=== PATIENT | female | born 1970 | race Caucasian/White ===

== ENCOUNTER 2018-11-25 06:09 | Inpatient (IN) | payer MEDICARE, OTHER ==
--- NOTE | 2018-11-25 07:37 | ER Document Report ---
ED Medical Screen (RME) - General Chief Complaint: Ear Pain Stated Complaint: RIGHT EAR EARACHE Time Seen by Provider: 11/25/18 06:48 Primary Care Provider: SNEHA RONQUILLO MD [Primary Care Provider] - Follow up as needed Notes: Patient is a 48-year-old female who presents emergency department with right ear pain. She states that she has had her ear pain for over a week. She was diagnosed with otitis externa by her primary care provider and was given Bactrim. She finished her Bactrim, but she states that she still continues to have a dull ache in her ear. She has pain behind her ear. She also states that she has redness to the right side of her face. Patient has a history of myasthenia gravis and lupus. She is currently on CellCept, prednisone, and Benlysta. Exam: Tenderness to right mastoid process. I have greeted and performed a rapid initial assessment of this patient. A comprehensive ED assessment and evaluation of the patient, analysis of test results and completion of medical decision making process will be conducted by an additional ED providers. TRAVEL OUTSIDE OF THE [place] IN LAST 30 DAYS: No - Related Data Allergies/Adverse Reactions: erythromycin base [Erythromycin Base] Allergy (Verified 09/12/14 16:31) Penicillins Allergy (Verified 09/12/14 16:31) Past Medical History - Social History Chew tobacco use (# tins/day): No Frequency of alcohol use: None Drug Abuse: None Renal/ Medical History: Denies: Hx Peritoneal Dialysis Musculoskeltal Medical History: Reports Hx Fibromyalgia Psychiatric Medical History: Reports: Hx Attention Deficit Hyperactivity Disorder, Hx Depression Past Surgical History: Reports: Hx Hysterectomy - Immunizations Immunizations up to date: Yes Hx Diphtheria, Pertussis, Tetanus Vaccination: Yes Physical Exam - Vital signs Vitals: Temp Pulse Resp BP Pulse Ox 99.0 F 116 H 20 157/106 H 98 11/25/18 06:24 11/25/18 06:24 11/25/18 06:24 11/25/18 06:24 11/25/18 06:24 Course - Vital Signs Vital signs: Temp Pulse Resp BP Pulse Ox 99.1 F 116 H 18 152/94 H 97 11/25/18 08:58 11/25/18 06:24 11/25/18 08:58 11/25/18 08:58 11/25/18 08:58 - Laboratory Result Diagrams: 11/25/18 08:52 11/25/18 08:52 Laboratory results interpreted by me: 11/25/18 08:52 WBC 15.4 H Hgb 11.8 L RDW 15.4 H Absolute Neutrophils 11.2 H Doctor's Discharge - Discharge Referrals: SNEHA RONQUILLO MD [Primary Care Provider] - Follow up as needed
[2018-11-25 09:10] LABS: ABSOLUTE BASOPHILS # (AUTO) 0.1 10^3/uL (0.0-0.2); ABSOLUTE EOSINOPHILS # (AUTO) 0.1 10^3/uL (0.0-0.6); ABSOLUTE MONOCYTES (AUTO) 1.1 10^3/uL (0.1-1.4); ABSOLUTE NEUT (AUTO) 11.2 10^3/uL (1.7-8.2); BASOPHILS % (AUTO) 0.3 % (0-2); EOSINOPHILS % (AUTO) 0.4 % (0-6); HEMATOCRIT 36.4 % (36.0-47.0); HEMOGLOBIN 11.8 g/dL (12.0-15.5); LYMPHOCYTES % (AUTO) 19.5 % (13-45); MEAN CORPUSCULAR HEMOGLOBIN 27.8 pg (27.0-33.4); MEAN CORPUSCULAR HGB CONC 32.3 g/dL (32.0-36.0); MEAN CORPUSCULAR VOLUME 86 fl (80-97); PLATELET COUNT 433 10^3/uL (150-450); RED BLOOD COUNT 4.23 10^6/uL (3.72-5.28); RED CELL DISTRIBUTION WIDTH 15.4 % (11.5-14.0); SEGMENTED NEUTROPHILS % (AUTO) 72.8 % (42-78); TOTAL CELLS COUNTED % (AUTO) 100 %; WHITE BLOOD COUNT 15.4 10^3/uL (4.0-10.5)
[2018-11-25 09:33] LABS: ALANINE AMINOTRANSFERASE 24 U/L (9-52); ALBUMIN 4.1 g/dL (3.5-5.0); ALKALINE PHOSPHATASE 87 U/L (38-126); ANION GAP 8 (5-19); ASPARTATE AMINO TRANSFERASE 16 U/L (14-36); BILIRUBIN,DIRECT 0.2 mg/dL (0.0-0.4); BILIRUBIN,TOTAL 0.3 mg/dL (0.2-1.3); BLOOD UREA NITROGEN 14 mg/dL (7-20); C-REACTIVE PROTEIN 33.4 mg/L (<10.0); CALCIUM 9.4 mg/dL (8.4-10.2); CARBON DIOXIDE 23 mmol/L (22-30); CHLORIDE 103 mmol/L (98-107); GLUCOSE 106 mg/dL (75-110); POTASSIUM 3.7 mmol/L (3.6-5.0); TOTAL PROTEIN 6.7 g/dL (6.3-8.2)
[2018-11-25 09:46] LABS: ERYTHROCYTE SEDIMENTATION RATE 49 mm/hr (0-20)
[2018-11-25] MEDS ORDERED: MORPHINE SULFATE 10 MG/ML INJ IV ONE (09:50)
--- NOTE | 2018-11-25 09:53 | ER Document Report ---
ED General - General Chief Complaint: Ear Pain Stated Complaint: RIGHT EAR EARACHE Time Seen by Provider: 11/25/18 06:48 Primary Care Provider: SNEHA RONQUILLO MD [Primary Care Provider] - Follow up as needed TRAVEL OUTSIDE OF THE [place] IN LAST 30 DAYS: No - HPI Notes: 48-year-old female with a history of myasthenia gravis gravis and lupus presents to the ED for complaints of right ear pain, right neck pain that has become progressively worse. Patient was placed on Bactrim by her primary care provider for treating right otitis externa. Patient states her symptoms include sharp pain, throbbing. Symptoms have become progressively worse. Pain is 9 out of 10, sharp and constant, has not tried any [id number] medications for pain. denies fevers, chills, chest pain,palpitations, shortness of breath, dyspnea, nausea, vomiting, diarrhea, abdominal pain, hematuria,blurred vision, double vision, loss of vision, speech changes, headaches, wheezing, ST, URI, neck pain, weakness, bowel or bladder dysfunction, saddle anesthesia, numbness or tingling in bilateral upper or lower extremities equally, muscle paralysis, weakness in bilateral upper or lower extremities equally or rash. - Related Data Allergies/Adverse Reactions: erythromycin base [Erythromycin Base] Allergy (Verified 09/12/14 16:31) Penicillins Allergy (Verified 09/12/14 16:31) Past Medical History - General Information source: Patient, Relative - Social History Smoking Status: Never Smoker Chew tobacco use (# tins/day): No Frequency of alcohol use: None Drug Abuse: None Family History: Reviewed & Not Pertinent Patient has suicidal ideation: No Patient has homicidal ideation: No Renal/ Medical History: Denies: Hx Peritoneal Dialysis Musculoskeletal Medical History: Reports Hx Fibromyalgia Psychiatric Medical History: Reports: Hx Attention Deficit Hyperactivity Disorder, Hx Depression Past Surgical History: Reports: Hx Hysterectomy - Immunizations Immunizations up to date: Yes Hx Diphtheria, Pertussis, Tetanus Vaccination: Yes Review of Systems - Review of Systems Constitutional: No symptoms reported EENT: See HPI Cardiovascular: No symptoms reported Respiratory: No symptoms reported Gastrointestinal: No symptoms reported Genitourinary: No symptoms reported Female Genitourinary: No symptoms reported Musculoskeletal: No symptoms reported Skin: No symptoms reported Hematologic/Lymphatic: No symptoms reported Neurological/Psychological: No symptoms reported Physical Exam - Vital signs Vitals: Temp Pulse Resp BP Pulse Ox 99.0 F 116 H 20 157/106 H 98 11/25/18 06:24 11/25/18 06:24 11/25/18 06:24 11/25/18 06:24 11/25/18 06:24 - Notes Notes: PHYSICAL EXAMINATION: GENERAL: Well-appearing, well-nourished and in no mild distress HEAD: Atraumatic, normocephalic. EYES: Pupils equal round and reactive to light, extraocular movements intact, conjunctiva are normal. ENT: Right mastoid tenderness on palpation, noted. Noted right preauricular tenderness on palpation. right cervical lymphadenopathy, right external canal with inflammation, TM intact, no erythema, bulging. Nares patent, oropharynx clear without exudates. Moist mucous membranes. No trismus. NECK: Normal range of motion, supple without lymphadenopathy LUNGS: Breath sounds clear to auscultation bilaterally and equal. No wheezes rales or rhonchi. HEART: Regular rate and rhythm without murmurs ABDOMEN: Soft, nontender, nondistended abdomen. No guarding, no rebound. No masses appreciated. Female : deferred Musculoskeletal: Normal range of motion, no pitting or edema. No cyanosis. NEUROLOGICAL: Cranial nerves grossly intact. Normal speech, normal gait. Normal sensory, motor exams PSYCH: Normal mood, normal affect. SKIN: Warm, Dry, normal turgor, no rashes or lesions noted. Course - Re-evaluation Re-evalutation: 11/25/18 11:04 48-year-old female, afebrile vitals stable in mild distress due to pain. Nurse's notes reviewed. Patient does have a leukocytosis of 15.4, CT soft tissue neck with contrast shows limited mastoid effusion on the right and cannot exclude mastoiditis. Patient's pain is been managed through morphine however this is not lessening her pain which is 9 out of 10, 50 mcg of fentanyl given along with Zofran for nausea. Considering patient's clinical examination along with diagnostic imaging and laboratory findings, patient should be considered for admission for management of mastoiditis. Blood cultures have been drawn, will start patient on 1 g Rocephin IV. Consulted with at least a hotel and, hospitalist who will admit patient to medical service for management of mastoiditis. Patient was agreeable with this plan of care and verbalized understanding of this plan of care. - Vital Signs Vital signs: Temp Pulse Resp BP Pulse Ox 99.1 F 116 H 18 152/94 H 97 11/25/18 08:58 11/25/18 06:24 11/25/18 08:58 11/25/18 08:58 11/25/18 08:58 - Laboratory Result Diagrams: 11/25/18 08:52 11/25/18 08:52 Laboratory results interpreted by me: 11/25/18 11/25/18 08:52 08:52 WBC 15.4 H Hgb 11.8 L RDW 15.4 H Absolute Neutrophils 11.2 H ESR 49 H Sodium 134.4 L C-Reactive Protein 33.4 H Discharge - Discharge Clinical Impression: Mastoiditis Condition: Stable Disposition: ADMITTED INPATIENT Admitting Provider: Noelle Wiseman NP Unit Admitted: Medical Floor Referrals: SNEHA RONQUILLO MD [Primary Care Provider] - Follow up as needed
--- NOTE | 2018-11-25 10:32 | RADIOLOGY REPORT (SQ) ---
EXAM DESCRIPTION: CT SOFT TISSUE NECK WITH COMPLETED DATE/TIME: 11/25/2018 10:12 am REASON FOR STUDY: right neck pain, R mastoid pain COMPARISON: None. TECHNIQUE: Post IV contrasted scanning from skull base through lung apices with review of bone, soft tissue and lung windows. Reconstructed coronal and sagittal MPR images reviewed. All images stored on PACS. All CT scanners at this facility use dose modulation, iterative reconstruction, and/or weight based d osing when appropriate to reduce radiation dose to as low as reasonably achievable (ALARA). [facility]: Dose Right [facility]: CareDose [facility]: Dose Right [facility]: Teradose 4D [facility]: VSE EVAKUATORY ROSSII CONTRAST TYPE AND DOSE: contrast/concentration: Isovue 350.00 mg/ml; Total Contrast Delivered: 75.0 ml; Total Saline Delivered: 55.0 ml RENAL FUNCTION: BUN 14 creatinine 0.73 RADIATION DOSE: CT Rad equipment meets quality standard of care and radiation dose reduction techniq ues were employed. CTDIvol: 16.8 mGy. DLP: 550 mGy-cm. . LIMITATIONS: None. FINDINGS: SKULL BASE: There is an air-fluid level in the mastoid air cells on the right on image 31 series 3. MAJOR SALIVARY GLANDS: No solid or cystic masses. No inflammatory changes. LYMPHADENOPATHY: No adenopathy. MUCOSAL MASSES OR ASYMMETRY: No mucosal masses or asymmetry. LARYNX/CORDS: No abnormal findings. VASCULAR STRUCTURES: The major vessels are patent. LUNG APICES: Clear. BONES: Intact. THYROID: Normal size. No masses. PARANASAL SINUSES: Clear. OTHER: No other significant finding. IMPRESSION: There is a limited mastoid effusion on the right, cannot exclude mastoiditis. TECHNICAL DOCUMENTATION: JOB ID: [id number] Quality ID # [id number]: Final reports with documentation of one or more dose reduction techniques (e.g., Au tomated exposure control, adjustment of the mA and/or kV according to patient size, use of iterative reconstruction technique) 2010 [employer]- All Rights Reserved Reading location - IP/workstation name: [email or web address]
[2018-11-25] MEDS ORDERED: CEFTRIAXONE INJ 1000 MG VIAL IM ONE (10:54)
[2018-11-25] MEDS ORDERED: FENTANYL CITRATE INJ/PF 100 MCG/2 ML AMPUL IV ONE (11:02)
[2018-11-25] MEDS ORDERED: ONDANSETRON HCL INJ/PF 4 MG/2 ML SDV IV ONE (11:02)
[2018-11-25] MEDS ORDERED: NORMAL SALINE 1000 ML 1,000 ML IV PRN (11:05)
[2018-11-25] MEDS ORDERED: CEFTRIAXONE INJ 1000 MG VIAL IV ONE (11:26)
[2018-11-25] MEDS ORDERED: ONDANSETRON HCL INJ/PF 4 MG/2 ML SDV IV PRN ×2 (11:42→13:00)
[2018-11-25] MEDS ORDERED: ACETAMINOPHEN 325 MG TABLET PO PRN (11:42)
[2018-11-25] MEDS ORDERED: TRAMADOL HCL 50 MG TABLET PO PRN (11:48)
[2018-11-25] MEDS ORDERED: IBUPROFEN 800 MG TABLET PO PRN (11:48)
[2018-11-25] MEDS ORDERED: MORPHINE SULFATE 10 MG/ML INJ IV PRN (12:27)
[2018-11-25] MEDS: CIPROFLOXACIN HCL/DEXAMETH OTIC DROP 7.5 ML AD SCH ×2 (15:46→21:20)
[2018-11-25] MEDS ORDERED: (PENDING PHARMACY ID) (Butalb/Acetaminophen/Caffeine [Fioricet 50-300-40 Mg Capsule] 1 CAP PO PRN (16:00)
[2018-11-25] MEDS ORDERED: LORAZEPAM 1 MG TABLET PO PRN (16:00)
[2018-11-25] MEDS ORDERED: MYCOPHENOLATE MOFETIL 1500 MG PO SCH (17:00)
[2018-11-25] MEDS: BUPROPION HCL 75 MG TABLET PO SCH (17:37)
[2018-11-25] MEDS: MYCOPHENOLATE MOFETIL 250 MG CAPSULE PO SCH (17:37)
[2018-11-25] MEDS ORDERED: [UNRECOGNIZED DRUG - OTHER] PO SCH (18:00)
[2018-11-25] MEDS ORDERED: DEXTROAMPHETAMINE PO SCH (18:00)
[2018-11-25] MEDS ORDERED: AMPHETAMINE PO SCH (18:00)
[2018-11-25] MEDS: BUTALB/ACETAMINOPHEN/CAFFEINE 1 TAB EACH PO PRN (19:42)
[2018-11-25] MEDS: MELATONIN 5 MG TABLET PO SCH (21:20)
[2018-11-25] MEDS: GABAPENTIN 300 MG CAPSULE PO SCH (21:20)
[2018-11-25] MEDS: ZOLPIDEM TARTRATE 5 MG TABLET PO PRN (21:20)
[2018-11-25] MEDS: ESCITALOPRAM OXALATE 10 MG TABLET PO SCH (21:21)
[2018-11-25] MEDS ORDERED: (PENDING PHARMACY ID) (Bupropion Hcl [Wellbutrin Xl 150 Mg 24hr Tablet] 150 MG) PO SCH (22:00)
[2018-11-26] MEDS: BUTALB/ACETAMINOPHEN/CAFFEINE 1 TAB EACH PO PRN ×3 (00:44→21:50)
[2018-11-26] MEDS: GABAPENTIN 300 MG CAPSULE PO SCH ×3 (05:30→21:49)
[2018-11-26 06:19] LABS: ABSOLUTE EOSINOPHILS # (AUTO) 0.2 10^3/uL (0.0-0.6); ABSOLUTE MONOCYTES (AUTO) 0.5 10^3/uL (0.1-1.4); ABSOLUTE NEUT (AUTO) 4.1 10^3/uL (1.7-8.2); BASOPHILS % (AUTO) 0.3 % (0-2); EOSINOPHILS % (AUTO) 2.5 % (0-6); HEMATOCRIT 33.4 % (36.0-47.0); HEMOGLOBIN 10.6 g/dL (12.0-15.5); LYMPHOCYTES % (AUTO) 29.5 % (13-45); MEAN CORPUSCULAR HGB CONC 31.8 g/dL (32.0-36.0); MEAN CORPUSCULAR VOLUME 88 fl (80-97); MONOCYTES % (AUTO) 7.7 % (3-13); PLATELET COUNT 322 10^3/uL (150-450); RED BLOOD COUNT 3.78 10^6/uL (3.72-5.28); RED CELL DISTRIBUTION WIDTH 15.6 % (11.5-14.0); TOTAL CELLS COUNTED % (AUTO) 100 %; WHITE BLOOD COUNT 6.8 10^3/uL (4.0-10.5)
[2018-11-26 06:40] LABS: ANION GAP 6 (5-19); BLOOD UREA NITROGEN 8 mg/dL (7-20); CALCIUM 8.6 mg/dL (8.4-10.2); CARBON DIOXIDE 27 mmol/L (22-30); CHLORIDE 108 mmol/L (98-107); GLUCOSE 80 mg/dL (75-110)
[2018-11-26 06:48] LABS: POTASSIUM 5.1 mmol/L (3.6-5.0)
--- NOTE | 2018-11-26 09:13 | PDOC H&P ---
History of Present Illness Admission Date/PCP: 11/25/18 11:15 SNEHA RONQUILLO MD Patient complains of: Right ear pain and fever History of Present Illness: SANDRINE LEAHY is a 48 year old female past medical history of lupus and myasthenia gravis; who presents to [facility] emergency room with complaints of increasing right ear pain despite oral antibiotic use for 1 week. Patient states she was treated for otitis externa by her primary care provider with Bactrim DS twice daily. She states the ear is now extremely tender to touch as well as the posterior area behind the ear. Developed low-grade fevers last night which spiked this morning up to 101.7. She therefore because of her lupus decided to come to the emergency room. She underwent CT of the soft tissue of the head and neck and was found to have a small fluid collection surrounding the right mastoid area. There is possibility of mastoiditis discussed. Blood cultures x2 are obtained and she was started on IV ceftriaxone and referred to the hospitalist service for admission. Past Medical History Cardiac Medical History: Reports: None Pulmonary Medical History: Reports: None EENT Medical History: Reports: None Neurological Medical History: Reports: None, Other - History of myasthenia gravis Endocrine Medical History: Reports: Obesity Renal/ Medical History: Reports: None Malignancy Medical History: Reports: None GI Medical History: Reports: None Musculoskeltal Medical History: Reports: Fibromyalgia Psychiatric Medical History: Reports: Attention Deficit Hyperactivity Disorder, Depression Hematology: Reports: Other - Lupus Past Surgical History Past Surgical History: Reports: Hysterectomy Social History Information Source: Patient Lives with: Family Smoking Status: Never Smoker Frequency of Alcohol Use: None Hx Recreational Drug Use: No Drugs: None Hx Prescription Drug Abuse: No - Advance Directive Resuscitation Status: Full Code Surrogate healthcare decision maker:: is her healthcare surrogate Family History Family History: Hypertension Parental Family History Reviewed: Yes Children Family History Reviewed: Yes Sibling(s) Family History Reviewed.: Yes Medication/Allergy Home Medications: Bupropion HCl [Wellbutrin Xl 150 mg 24hr Tablet] 150 mg PO QHS 11/25/18 Butalb/Acetaminophen/Caffeine [Fioricet 50-300-40 mg Capsule] 1 cap PO Q4HP PRN MDD 6 CAPS 11/25/18 Cyanocobalamin (Vitamin B-12) [Vitamin B-12 Inj 1000 Mcg/1 ml Vial] 1,000 mcg IM .MONTHLY 11/25/18 Dextroamphetamine/Amphetamine [Dextroamp-Amphet ER 30 mg Cap] 30 mg PO BID 11/25/18 Ergocalciferol (Vitamin D2) [Drisdol 50,000 Unit (1.25MG) Capsule] 50,000 unit PO MOWE@1000 11/25/18 Escitalopram Oxalate [Lexapro 10 mg Tablet] 30 mg PO QHS 11/25/18 Estradiol [Estrace] 1 mg PO TUTH@1000 11/25/18 Gabapentin [Neurontin 300 mg Capsule] 600 mg PO Q8 11/25/18 Lisinopril/Hydrochlorothiazide [Lisinopril-Hctz 10-12.5 mg Tab] 1 each PO DAILY 11/25/18 Lorazepam [Ativan 1 mg Tablet] 1 mg PO Q12HP PRN 11/25/18 Melatonin [Melatonin 5 mg Tablet] 10 mg PO QHS 11/25/18 Mycophenolate Mofetil [Cellcept] 1,500 mg PO BIDBS 11/25/18 Prednisone [Deltasone 1 mg Tablet] 3 mg PO DAILY 11/25/18 Sulfamethoxazole/Trimethoprim [Septra-Ds 800-160 mg Tablet] 1 tab PO BID MDD FILLED 11/22 FOR 7 DAYS 11/25/18 Tramadol HCl [Ultram 50 mg Tablet] 50 mg PO Q8HP PRN 11/25/18 Allergies/Adverse Reactions: erythromycin base [Erythromycin Base] Allergy (Verified 09/12/14 16:31) Penicillins Allergy (Verified 09/12/14 16:31) Review of Systems Constitutional: PRESENT: chills, fever(s), weakness Eyes: ABSENT: visual disturbances Ears: PRESENT: as per HPI Nose, Mouth, and Throat: PRESENT: sore throat Cardiovascular: ABSENT: chest pain, dyspnea on exertion, edema, orthropnea, p alpitations Respiratory: ABSENT: cough, hemoptysis Gastrointestinal: ABSENT: abdominal pain, constipation, diarrhea, hematemesis, hematochezia, nausea, vomiting Genitourinary: ABSENT: dysuria, hematuria Musculoskeletal: ABSENT: joint swelling Integumentary: ABSENT: rash, wounds Neurological: ABSENT: abnormal gait, abnormal speech, confusion, dizziness, focal weakness, syncope Psychiatric: ABSENT: anxiety, depression, homidical ideation, suicidal ideation Endocrine: ABSENT: cold intolerance, heat intolerance, polydipsia, polyuria Hematologic/Lymphatic: ABSENT: easy bleeding, easy bruising Physical Exam Vital Signs: Temp Pulse Resp BP Pulse Ox 98 F 98 16 142/81 H 100 11/25/18 13:40 11/25/18 13:40 11/25/18 13:40 11/25/18 13:40 11/25/18 13:40 Intake & Output 11/24/18 11/25/18 11/26/18 06:59 06:59 06:59 Weight 112.2 kg 112.5 kg General appearance: PRESENT: no acute distress, morbidly obese, well-developed, well-nourished Head exam: PRESENT: atraumatic, normocephalic Eye exam: PRESENT: conjunctiva pink, EOMI, PERRLA. ABSENT: scleral icterus Ear exam: PRESENT: other - Right TM is erythemic and bulging. Right pinna swollen and tender Mouth exam: PRESENT: moist, tongue midline Neck exam: ABSENT: carotid bruit, JVD, lymphadenopathy, thyromegaly Respiratory exam: PRESENT: clear to auscultation nelda. ABSENT: rales, rhonchi, wheezes Cardiovascular exam: PRESENT: RRR. ABSENT: diastolic murmur, rubs, systolic murmur Pulses: PRESENT: normal dorsalis pedis pul Vascular exam: PRESENT: normal capillary refill GI/Abdominal exam: PRESENT: normal bowel sounds, soft. ABSENT: distended, gu arding, mass, organolmegaly, rebound, tenderness Rectal exam: PRESENT: deferred Extremities exam: PRESENT: full ROM. ABSENT: calf tenderness, clubbing, pedal edema Musculoskeletal exam: PRESENT: ambulatory, full ROM Neurological exam: PRESENT: alert, awake, oriented to person, oriented to place, oriented to time, oriented to situation, CN II-XII grossly intact. ABSENT: motor sensory deficit Psychiatric exam: PRESENT: appropriate affect, normal mood. ABSENT: homicidal ideation, suicidal ideation Skin exam: PRESENT: dry, intact, warm. ABSENT: cyanosis, rash Results Laboratory Results: 11/25/18 08:52 11/25/18 08:52 11/25/18 11/25/18 11/25/18 08:52 08:52 11:03 WBC 15.4 H RBC 4.23 Hgb 11.8 L Hct 36.4 MCV 86 MCH 27.8 MCHC 32.3 RDW 15.4 H Plt Count 433 Seg Neutrophils % 72.8 Lymphocytes % 19.5 Monocytes % 7.0 Eosinophils % 0.4 Basophils % 0.3 Absolute Neutrophils 11.2 H Absolute Lymphocytes 3.0 Absolute Monocytes 1.1 Absolute Eosinophils 0.1 Absolute Basophils 0.1 Sodium 134.4 L Potassium 3.7 Chloride 103 Carbon Dioxide 23 Anion Gap 8 BUN 14 Creatinine 0.73 Est GFR ( Amer) > 60 Est GFR (Non-Af Amer) > 60 Glucose 106 Lactic Acid 1.7 Calcium 9.4 Total Bilirubin 0.3 AST 16 ALT 24 Alkaline Phosphatase 87 C-Reactive Protein 33.4 H Total Protein 6.7 Albumin 4.1 Impressions: Soft Tissue Neck CT 11/25/18 08:03 IMPRESSION: There is a limited mastoid effusion on the right, cannot exclude mastoiditis. Assessment and Plan - Diagnosis (1) Mastoiditis Qualifiers: Laterality: right Qualified Code(s): H70.91 - Unspecified mastoiditis, right ear Is this a current diagnosis for this admission?: Yes Plan: Patient was started on IV ceftriaxone 2 g daily. PRN analgesics and K pad (2) Lupus Is this a current diagnosis for this admission?: Yes Plan: Continue home medications. (3) Right otitis media Qualifiers: Otitis media type: serous Is this a current diagnosis for this admission?: Yes Plan: To be covered by IV ceftriaxone (4) Morbid (severe) obesity due to excess calories Is this a current diagnosis for this admission?: Yes Plan: Counseled.
[2018-11-26] MEDS: CIPROFLOXACIN HCL/DEXAMETH OTIC DROP 7.5 ML AD SCH ×2 (09:18→17:15)
[2018-11-26] MEDS: LISINOPRIL 10 MG TABLET PO SCH (09:18)
[2018-11-26] MEDS: HYDROCHLOROTHIAZIDE 12.5 MG TABLET PO SCH (09:18)
[2018-11-26] MEDS: MYCOPHENOLATE MOFETIL 250 MG CAPSULE PO SCH ×2 (09:18→17:15)
[2018-11-26] MEDS: CEFTRIAXONE 2 GM/D5W RTU 2 GM/50 ML RTUPB IV SCH (09:19)
[2018-11-26] MEDS: BUPROPION HCL 75 MG TABLET PO SCH ×2 (09:19→17:15)
[2018-11-26] MEDS: ENOXAPARIN SODIUM INJ 40 MG/0.4 ML DISP.SYRIN SUBCUT SCH (09:26)
[2018-11-26] MEDS ORDERED: PREDNISONE 1 MG TABLET PO SCH (10:00)
[2018-11-26] MEDS ORDERED: (PENDING PHARMACY ID) (Lisinopril/Hydrochlorothiazide [Lisinopril-Hctz 10-12.5 Mg Tab] 1 E PO SCH (10:00)
--- NOTE | 2018-11-26 10:40 | PDOC PROGRESS REPORT ---
Subjective Progress Note for:: 11/26/18 Subjective:: Patient is seen resting in bed. She is awake, alert, oriented x3. She denies nausea, vomiting or abdominal pain. She denies any fevers or chills overnight. She continues to have a mild sore throat and some hoarseness. She also continues to have some pain in the right ear but it is much improved from yesterday. She had no fever or chills overnight. She has had no cough or chest discomfort. She denies any significant arthralgias or myalgias. Remaining review of systems are negative. Reason For Visit: MASTOIDITIS Physical Exam Vital Signs: Temp Pulse Resp BP Pulse Ox 97.9 F 68 17 128/78 H 100 11/26/18 07:38 11/26/18 07:38 11/26/18 07:38 11/26/18 07:38 11/26/18 07:38 Intake & Output 11/25/18 11/26/18 11/27/18 06:59 06:59 06:59 Intake Total 1370 50 Output Total 0 Balance 1370 50 Weight 112.2 kg 114.8 kg General appearance: PRESENT: no acute distress, morbidly obese, well-developed, well-nourished Head exam: PRESENT: atraumatic, normocephalic Eye exam: PRESENT: conjunctiva pink, EOMI, PERRLA. ABSENT: scleral icterus Ear exam: PRESENT: other - Mild swelling in the mastoid area on the right. Erythema has resolved. Mouth exam: PRESENT: moist, tongue midline Throat exam: PRESENT: post pharyngeal erythema Neck exam: ABSENT: carotid bruit, JVD, lymphadenopathy, thyromegaly Respiratory exam: PRESENT: clear to auscultation nelda. ABSENT: rales, rhonchi, wheezes Cardiovascular exam: PRESENT: RRR. ABSENT: diastolic murmur, rubs, systolic murmur Pulses: PRESENT: normal dorsalis pedis pul Vascular exam: PRESENT: normal capillary refill GI/Abdominal exam: PRESENT: normal bowel sounds, soft. ABSENT: distended, guarding, mass, organolmegaly, rebound, tenderness Rectal exam: PRESENT: deferred Extremities exam: PRESENT: full ROM. ABSENT: calf tenderness, clubbing, pedal edema Neurological exam: PRESENT: alert, awake, oriented to person, oriented to place, oriented to time, oriented to situation, CN II-XII grossly intact. ABSENT: motor sensory deficit Psychiatric exam: PRESENT: appropriate affect, normal mood. ABSENT: homicidal ideation, suicidal ideation Skin exam: PRESENT: dry, intact, warm. ABSENT: cyanosis, rash Results Laboratory Results: 11/26/18 05:00 11/26/18 05:00 11/25/18 11/26/18 11/26/18 11:03 05:00 05:00 WBC 6.8 RBC 3.78 Hgb 10.6 L Hct 33.4 L MCV 88 MCH 28.0 MCHC 31.8 L RDW 15.6 H Plt Count 322 Seg Neutrophils % 60.0 Lymphocytes % 29.5 Monocytes % 7.7 Eosinophils % 2.5 Basophils % 0.3 Absolute Neutrophils 4.1 Absolute Lymphocytes 2.0 Absolute Monocytes 0.5 Absolute Eosinophils 0.2 Absolute Basophils 0.0 Sodium 141.0 Potassium 5.1 H D Chloride 108 H Carbon Dioxide 27 Anion Gap 6 BUN 8 Creatinine 0.64 Est GFR ( Amer) > 60 Est GFR (Non-Af Amer) > 60 Glucose 80 Lactic Acid 1.7 Calcium 8.6 Impressions: Soft Tissue Neck CT 11/25/18 08:03 IMPRESSION: There is a limited mastoid effusion on the right, cannot exclude mastoiditis. Assessment and Plan - Diagnosis (1) Mastoiditis Qualifiers: Laterality: right Qualified Code(s): H70.91 - Unspecified mastoiditis, right ear Is this a current diagnosis for this admission?: Yes Plan: Patient was started on IV ceftriaxone 2 g daily. Continue today and tomorrow morning then transition to oral antibiotics hopefully in discharge PRN analgesics and K pad (2) Lupus Is this a current diagnosis for this admission?: Yes Plan: Continue home medications. (3) Right otitis media Qualifiers: Otitis media type: serous Is this a current diagnosis for this admission?: Yes Plan: Continue IV ceftriaxone. Will add flonase (4) Morbid (severe) obesity due to excess calories Is this a current diagnosis for this admission?: Yes Plan: Counseled. - Time Time Spent with patient: 25-34 minutes Total Critical Time (Minutes): 20 Medications reviewed and adjusted accordingly: Yes Anticipated discharge: Home Within: within 24 hours - Inpatient Certification Based on my medical assessment, after consideration of the patient's comorbidities, presenting symptoms, or acuity I expect that the services needed warrant INPATIENT care.: Yes I certify that my determination is in accordance with my understanding of Medicare's requirements for reasonable and necessary INPATIENT services [42 CFR 412.3e].: Yes Medical Necessity: Failure to Improve With Outpatient Therapy, Need for IV Antibiotics
[2018-11-26] MEDS: ESCITALOPRAM OXALATE 10 MG TABLET PO SCH (21:49)
[2018-11-26] MEDS: ZOLPIDEM TARTRATE 5 MG TABLET PO PRN (21:50)
[2018-11-26] MEDS: MELATONIN 5 MG TABLET PO SCH (21:56)
[2018-11-27] MEDS: GABAPENTIN 300 MG CAPSULE PO SCH (05:20)
[2018-11-27] MEDS: BUTALB/ACETAMINOPHEN/CAFFEINE 1 TAB EACH PO PRN (05:23)
[2018-11-27] MEDS: ENOXAPARIN SODIUM INJ 40 MG/0.4 ML DISP.SYRIN SUBCUT SCH (09:06)
[2018-11-27] MEDS: BUPROPION HCL 75 MG TABLET PO SCH (09:10)
[2018-11-27] MEDS: HYDROCHLOROTHIAZIDE 12.5 MG TABLET PO SCH (09:10)
[2018-11-27] MEDS: MYCOPHENOLATE MOFETIL 250 MG CAPSULE PO SCH (09:10)
[2018-11-27] MEDS: CEFTRIAXONE 2 GM/D5W RTU 2 GM/50 ML RTUPB IV SCH (09:10)
[2018-11-27] MEDS: CIPROFLOXACIN HCL/DEXAMETH OTIC DROP 7.5 ML AD SCH (09:11)
[2018-11-27] MEDS: LISINOPRIL 10 MG TABLET PO SCH (09:11)
[2018-11-27] MEDS ORDERED: PREDNISONE 20 MG TABLET PO SCH (10:00)
[2018-11-27] MEDS ORDERED: FLUTICASONE NASAL SPRAY 50 MCG/SPRY 120 SPRAY/16 GM NASL SCH (10:00)
--- NOTE | 2018-11-27 10:07 | PDOC DISCHARGE SUMMARY ---
General - Admit/Disc Date/PCP Admission Date/Primary Care Provider: 11/25/18 11:15 SNEHA RONQUILLO MD Discharge Date: 11/27/18 - Discharge Diagnosis (1) Mastoiditis Is this a current diagnosis for this admission?: Yes (2) Right otitis media Is this a current diagnosis for this admission?: Yes (3) Lupus Is this a current diagnosis for this admission?: Yes (4) Morbid (severe) obesity due to excess calories Is this a current diagnosis for this admission?: Yes - Additional Information Resuscitation Status: Full Code Discharge Diet: Regular Discharge Activity: Activity As Tolerated Prescriptions: Doxycycline Hyclate [Vibramycin 100 mg Tablet] 100 mg PO BID #14 tablet Prednisone [Deltasone 20 mg Tablet] 20 mg PO BID #6 tablet Home Medications: Bupropion HCl [Wellbutrin Xl 150 mg 24hr Tablet] 150 mg PO QHS 11/25/18 Butalb/Acetaminophen/Caffeine [Fioricet 50-300-40 mg Capsule] 1 cap PO Q4HP PRN MDD 6 CAPS 11/25/18 Cyanocobalamin (Vitamin B-12) [Vitamin B-12 Inj 1000 Mcg/1 ml Vial] 1,000 mcg IM .MONTHLY 11/25/18 Dextroamphetamine/Amphetamine [Dextroamp-Amphet ER 30 mg Cap] 30 mg PO BID 11/25/18 Ergocalciferol (Vitamin D2) [Drisdol 50,000 unit (1.25MG) Capsule] 50,000 unit PO MOWE@1000 11/25/18 Escitalopram Oxalate [Lexapro 10 mg Tablet] 30 mg PO QHS 11/25/18 Estradiol [Estrace] 1 mg PO TUTH@1000 11/25/18 Gabapentin [Neurontin 300 mg Capsule] 600 mg PO Q8 11/25/18 Lisinopril/Hydrochlorothiazide [Lisinopril-Hctz 10-12.5 mg Tab] 1 each PO DAILY 11/25/18 Lorazepam [Ativan 1 mg Tablet] 1 mg PO Q12HP PRN 11/25/18 Melatonin [Melatonin 5 mg Tablet] 10 mg PO QHS 11/25/18 Mycophenolate Mofetil [Cellcept] 1,500 mg PO BIDBS 11/25/18 Prednisone [Deltasone 1 mg Tablet] 3 mg PO DAILY 11/25/18 Tramadol HCl [Ultram 50 mg Tablet] 50 mg PO Q8HP PRN 11/25/18 Acetaminophen [Tylenol 325 mg Tablet] 650 mg PO Q4HP PRN tablet 11/27/18 Ciprofloxacin HCl/Dexameth [Ciprodex Otic Suspension 7.5 ml Bottle] 4 drop AD BID bottle 11/27/18 Doxycycline Hyclate [Vibramycin 100 mg Tablet] 100 mg PO BID #14 tablet 11/27/18 Fluticasone Propionate [Flonase Nasal Smoot 50 Mcg/Smoot 16 gm] 2 spray NASL DAILY spray.pump 11/27/18 Prednisone [Deltasone 20 mg Tablet] 20 mg PO BID #6 tablet 11/27/18 History of Present Illness Patient complains of: Right ear pain History of Present Illness: SANDRINE LEAHY is a 48 year old female past medical history of lupus and myasthenia gravis; who presents to [facility]'s emergency room with complaints of increasing right ear pain despite oral antibiotic use for 1 week. Patient states she was treated for otitis externa by her primary care provider with Bactrim DS twice daily. She states the ear is now extremely tender to touch as well as the posterior area behind the ear. Developed low-grade fevers last night which spiked this morning up to 101.7. She therefore because of her lupus decided to come to the emergency room. She underwent CT of the soft tissue of the head and neck and was found to have a small fluid collection surrounding the right mastoid area. There is possibility of mastoiditis disc ussed. Blood cultures x2 are obtained and she was started on IV ceftriaxone and referred to the hospitalist service for admission. Hospital Course Hospital Course: Patient admitted to the medical floor on telemetry. She was started on IV hydration overnight. She was continued on IV ceftriaxone after blood cultures x2 were obtained. He was also started on Ciprodex drops to the right ear canal. She was given ibuprofen for pain as needed. Her low-grade fever overnight resolved by morning. Her leukocytosis had resolved by the following morning as well. IV ceftriaxone was continued for a total of 3 days. Blood cultures x2 remain negative. Right ear tenderness swelling and erythema resolved. Swelling in the mastoid area on the right resolved as well. Her right ear canal is much improved today. There is minor swelling and no further erythema. Right tympanic membrane is mildly erythemic, but overall improved. She continued to complain of some right jaw discomfort. But otherwise felt much improved. She will be discharged home on oral doxycycline due to her multiple drug allergies for another 7 days. She can finish the Ciprodex drops for a total of 7 days as well. She was discharged home with family in good condition. Physical Exam Vital Signs: Temp Pulse Resp BP Pulse Ox 98.5 F 82 17 144/80 H 100 11/27/18 07:58 11/27/18 07:58 11/27/18 07:58 11/27/18 07:58 11/27/18 07:58 Intake & Output 11/26/18 11/27/18 11/28/18 06:59 06:59 06:59 Intake Total 1370 1135 50 Output Total 0 Balance 1370 1135 50 Weight 114.8 kg 115.9 kg General appearance: PRESENT: no acute distress, morbidly obese, well-developed, well-nourished Head exam: PRESENT: atraumatic, normocephalic Eye exam: PRESENT: conjunctiva pink, EOMI, PERRLA. ABSENT: scleral icterus Ear exam: PRESENT: normal external ear exam, other - mild erythema of right t ympanic membrane, swelling and erythema of canal has resolved Mouth exam: PRESENT: moist, neck supple, tongue midline Neck exam: ABSENT: carotid bruit, JVD, lymphadenopathy, thyromegaly Respiratory exam: PRESENT: clear to auscultation nelda. ABSENT: rales, rhonchi, wheezes Cardiovascular exam: PRESENT: RRR. ABSENT: diastolic murmur, rubs, systolic murmur Pulses: PRESENT: normal dorsalis pedis pul Vascular exam: PRESENT: normal capillary refill GI/Abdominal exam: PRESENT: normal bowel sounds, soft. ABSENT: distended, gu arding, mass, organolmegaly, rebound, tenderness Rectal exam: PRESENT: deferred Extremities exam: PRESENT: full ROM. ABSENT: calf tenderness, clubbing, pedal edema Neurological exam: PRESENT: alert, awake, oriented to person, oriented to place, oriented to time, oriented to situation, CN II-XII grossly intact. ABSENT: mot or sensory deficit Psychiatric exam: PRESENT: appropriate affect, normal mood. ABSENT: homicidal ideation, suicidal ideation Skin exam: PRESENT: dry, intact, warm. ABSENT: cyanosis, rash Results Laboratory Results: 11/26/18 05:00 11/26/18 05:00 Impressions: Soft Tissue Neck CT 11/25/18 08:03 IMPRESSION: There is a limited mastoid effusion on the right, cannot exclude mastoiditis. Qualifiers - * PATIENT BEING DISCHARGED WITH ANY OF THE FOLLOWING DIAGNOSIS: No Acute Heart Failure - Is this a Heart Failure Patient?: No Plan Discharge Plan: Follow up with primary care provider in 1-2 weeks
[2018-11-27 12:05] VITALS: BP 119/70
[2018-11-29] MEDS ORDERED: ERGOCALCIFEROL (VITAMIN D2) 50000 UNIT (1.25 MG) CAPSULE PO SCH (10:00)
[2018-12-02] MEDS ORDERED: CYANOCOBALAMIN (VITAMIN B-12) INJ 1000 MCG/1 ML VIAL IM SCH (10:00)
== END 2018-11-27 13:00 | disposition home or self-care (01) | DRG 153 ==
LOC: ER 06:09 → EH 11:15 → 4N 13:20
PROVIDERS: ADMIT Internal Medicine; ATTEND Internal Medicine
DX: H70.91 Unspecified mastoiditis, right ear (principal); M32.9 Systemic lupus erythematosus, unspecified; H65.91 Unspecified nonsuppurative otitis media, right ear; E66.01 Morbid (severe) obesity due to excess calories; G70.00 Myasthenia gravis without (acute) exacerbation; Z79.899 Other long term (current) drug therapy; Z88.3 Allergy status to other anti-infective agents; Z88.0 Allergy status to penicillin
CPT/HCPCS: 36415; 70491; 80048; 80053; 83605; 85025; 85652; 86140; 87040; 96374; 99284; J0696; J2270; J2405; J3010; J3490; J7030; J7512; J7517

== ENCOUNTER 2018-11-30 23:04 | Inpatient (IN) | payer MEDICARE, OTHER ==
[2018-12-01 01:17] LABS: ABSOLUTE BASOPHILS # (AUTO) 0.1 10^3/uL (0.0-0.2); ABSOLUTE LYMPHOCYTES (AUTO) 2.2 10^3/uL (0.5-4.7); ABSOLUTE MONOCYTES (AUTO) 1.1 10^3/uL (0.1-1.4); ABSOLUTE NEUT (AUTO) 14.5 10^3/uL (1.7-8.2); BASOPHILS % (AUTO) 0.5 % (0-2); HEMATOCRIT 40.9 % (36.0-47.0); LYMPHOCYTES % (AUTO) 12.3 % (13-45); MEAN CORPUSCULAR HEMOGLOBIN 27.7 pg (27.0-33.4); MEAN CORPUSCULAR HGB CONC 31.8 g/dL (32.0-36.0); MEAN CORPUSCULAR VOLUME 87 fl (80-97); MONOCYTES % (AUTO) 5.9 % (3-13); PLATELET COUNT 514 10^3/uL (150-450); RED BLOOD COUNT 4.69 10^6/uL (3.72-5.28); SEGMENTED NEUTROPHILS % (AUTO) 81.3 % (42-78); TOTAL CELLS COUNTED % (AUTO) 100 %; WHITE BLOOD COUNT 17.9 10^3/uL (4.0-10.5)
--- NOTE | 2018-12-01 01:22 | ER Document Report ---
Entered by BALTA BRYANT SCRIBE 12/01/18 0032 Acting as scribe for:ANTOINETTE DODSON MD ED General - General Chief Complaint: Headache Stated Complaint: SEVERE HEADACHE,BLURRY VISION Time Seen by Provider: 11/30/18 23:49 Mode of Arrival: Ambulatory Information source: Patient, [facility] Records Notes: This 48-year-old female patient with a history of myasthenia gravis was admitted here on 11/25/2018 for a possible right mastoiditis following treatment for a right otitis externa. At the time she had an elevated white blood cell count, CT scan that showed limited mastoid air cell fluid and could not rule out mastoiditis. She was treated with IV Rocephin and prednisone, and discharged on 11/27/2018 on doxycycline and prednisone. She states the next day she felt fine. On 11/29/2018 she woke up sometime during the day with a return of pain and swelling to the right preauricular face and jaw region. She states it is gotten progressively worse since then. She states she is noticed today that she has weakness to the right facial muscles and difficulty talking. She also has severe headache and some blurry vision. She thinks she has had a low-grade fever in the 99.5 range. TRAVEL OUTSIDE OF THE [place] IN LAST 30 DAYS: No - Related Data Allergies/Adverse Reactions: erythromycin base [Erythromycin Base] Allergy (Verified 11/30/18 23:10) Penicillins Allergy (Verified 11/30/18 23:10) Past Medical History - General Information source: Patient - Social History Smoking Status: Never Smoker Cigarette use (# per day): No Chew tobacco use (# tins/day): No Smoking Education Provided: No Frequency of alcohol use: None Drug Abuse: None Family History: Hypertension Musculoskeletal Medical History: Reports Hx Fibromyalgia Psychiatric Medical History: Reports: Hx Attention Deficit Hyperactivity Disorder, Hx Depression Past Surgical History: Reports: Hx Hysterectomy - Immunizations Immunizations up to date: Yes Hx Diphtheria, Pertussis, Tetanus Vaccination: Yes Review of Systems - Review of Systems Constitutional: See HPI, Fever EENT: See HPI, Blurred vision, Other - Speech difficulty, facial swelling Cardiovascular: No symptoms reported Respiratory: No symptoms reported Gastrointestinal: No symptoms reported Genitourinary: No symptoms reported Female Genitourinary: No symptoms reported Musculoskeletal: No symptoms reported Skin: No symptoms reported Hematologic/Lymphatic: No symptoms reported Neurological/Psychological: See HPI, Headaches -: Yes All other systems reviewed and negative Physical Exam - Vital signs Vitals: Temp Pulse Resp BP Pulse Ox 98.7 F 89 28 H 141/105 H 99 11/30/18 23:14 11/30/18 23:14 11/30/18 23:14 11/30/18 23:14 11/30/18 23:14 - Notes Notes: Physical Exam: General: Alert, morbidly obese. HEENT: Exquisitely tender right preauricular swelling and erythema. TMs clear. Right external ear canal is very tender to examine and has a wet surface, however she has been using Cipro drops. There is a lid lag or weakness to the right upper eyelid causing ptosis. There is right facial muscle weakness causing her some difficulty with her speech. Neck: The right anterior lateral upper cervical region is tender to palpate and a little bit swollen. Respiratory: No respiratory distress. Clear and equal breath sounds bilaterally. Cardiovascular: Regular rate and rhythm. Abdominal: Normal Inspection. Non-tender. No distension. Normal Bowel Sounds. Back: Non-tender. No deformity or step off. Extremities: Moves all four extremities. Upper extremities: Normal inspection. Normal ROM. Lower extremities: Normal inspection. No edema. Normal ROM. Neurological: Normal cognition. AAOx4. Speech is a little slurred due to her right facial motor weakness. Psychological: Normal affect. Normal Mood. Skin: Warm. Dry. Normal color. Course - Vital Signs Vital signs: Temp Pulse Resp BP Pulse Ox 98.7 F 74 18 126/77 H 96 12/01/18 03:30 12/01/18 03:30 12/01/18 03:30 12/01/18 03:30 12/01/18 03:30 - Laboratory Result Diagrams: 12/01/18 00:59 12/01/18 00:59 Laboratory results interpreted by me: 12/01/18 12/01/18 12/01/18 00:59 00:59 05:26 WBC 17.9 H MCHC 31.8 L RDW 16.0 H Plt Count 514 H Seg Neutrophils % 81.3 H Lymphocytes % 12.3 L Absolute Neutrophils 14.5 H ESR 46 H Alkaline Phosphatase 137 H C-Reactive Protein 23.4 H Urine Blood SMALL H - Diagnostic Test Radiology reviewed: Reports reviewed - CT scan neck with contrast was read as unchanged from the scan done on 11/25/2018. - Consults Dr. Singh Time consulted: 05:48 Consulted provider: will come to ER Dr. Hoffman Time consulted: 05:55 Consulted provider: will see as inpatient - Requests that he be called when the patient is admitted and has a room assignment. Discharge - Discharge Clinical Impression: Myasthenia gravis Cellulitis Qualifiers: Site of cellulitis: face Qualified Code(s): L03.211 - Cellulitis of face Leukocytosis Qualifiers: Leukocytosis type: unspecified Qualified Code(s): D72.829 - Elevated white blood cell count, unspecified Condition: Stable Disposition: ADMITTED INPATIENT Admitting Provider: Samantha (Hospitalist) Unit Admitted: Medical Floor Scribe Attestation: 12/01/18 01:22 I personally performed the services described in the documentation, reviewed and edited the documentation which was dictated to the scribe in my presence, and it accurately records my words and actions. I personally performed the services described in the documentation, reviewed and edited the documentation which was dictated to the scribe in my presence, and it accurately records my words and actions.
[2018-12-01] MEDS ORDERED: ONDANSETRON HCL INJ/PF 4 MG/2 ML SDV IV ONE ×2 (01:28→06:18)
[2018-12-01] MEDS ORDERED: MORPHINE SULFATE 10 MG/ML INJ IV ONE (01:28)
[2018-12-01 01:42] LABS: ALBUMIN 4.5 g/dL (3.5-5.0); ALKALINE PHOSPHATASE 137 U/L (38-126); ANION GAP 10 (5-19); ASPARTATE AMINO TRANSFERASE 24 U/L (14-36); BILIRUBIN,DIRECT 0.4 mg/dL (0.0-0.4); BILIRUBIN,TOTAL 0.4 mg/dL (0.2-1.3); BLOOD UREA NITROGEN 19 mg/dL (7-20); C-REACTIVE PROTEIN 23.4 mg/L (<10.0); CALCIUM 9.7 mg/dL (8.4-10.2); CARBON DIOXIDE 27 mmol/L (22-30); CHLORIDE 101 mmol/L (98-107); GLUCOSE 107 mg/dL (75-110); POTASSIUM 4.3 mmol/L (3.6-5.0); TOTAL PROTEIN 8.2 g/dL (6.3-8.2)
[2018-12-01] MEDS ORDERED: CEFTRIAXONE 2 GM/D5W RTU 2 GM/50 ML RTUPB IV ONE (02:00)
[2018-12-01 02:04] LABS: ERYTHROCYTE SEDIMENTATION RATE 46 mm/hr (0-20)
[2018-12-01] MEDS ORDERED: FENTANYL CITRATE INJ/PF 100 MCG/2 ML AMPUL IV ONE ×2 (02:09→06:18)
--- NOTE | 2018-12-01 05:31 | RADIOLOGY REPORT (SQ) ---
EXAM: CT neck with intravenous contrast CLINICAL DATA: 48-year-old female with worsening right-sided mastoiditis. TECHNICAL DATA: CT imaging of the soft tissues of the neck were performed following the administration of intravenous contrast..The CT study is performed according to ALARA (as low as reasonably achievable) or ALARA/IMAGE GENTLY, with automatic adjustment of mA and/or kV according to patient size. Performed on: 12/01/2018 at 3:40 AM Comparisons: Prior CT with contrast performed on 11/25/2018. FINDINGS: The visualized portions of the brain and orbits are normal. The oral cavity, oropharynx and nasopharynx are normal. Some portions of the oral cavity and oropharynx are obscured by streak artifact related to the patient's dental hardware. The parapharyngeal fat planes are preserved. The hypopharynx is unremarkable. The parotid and submandibular glands are grossly within normal limits. No intrinsic mass lesions are seen. . The carotid sheaths are normal bilaterally. The epiglottis and aryepiglottic folds are normal. The vallecula and pyriform sinuses are grossly normal. The preepiglottic fat is preserved. The thyroid, cricoid and arytenoid cartilages are normal. The region of the false and true vocal cords is normal as is the anterior commissure. The paranasal sinuses are clear. Again demonstrated is stable partial opacification of the posterior inferior right mastoid air cells. No worsening mastoid sinus opacification is identified. No definite pathologically enlarged lymph nodes are identified The thyroid gland is normal in size and configuration. The thoracic inlet is normal. The superior mediastinum and lung apices are normal. No acute osseous abnormalities are identified. There are remote postsurgical changes of the mediastinum. No focal soft tissue abnormalities are seen. No pathologic areas of enhancement are identified. IMPRESSION: 1. No significant change when compared to the prior study. There is stable partial opacification of the posterior inferior right mastoid air cells. 2. Remote postsurgical changes of the mediastinum. 3. Otherwise, unremarkable enhanced CT scan of the soft tissues of the neck.
[2018-12-01 05:39] LABS: APPEARANCE,URINE SLIGHTLY-CLOUDY; BILIRUBIN,URINE NEGATIVE (NEGATIVE); COLOR,URINE STRAW; GLUCOSE, URINE NEGATIVE (NEGATIVE); KETONES,URINE NEGATIVE (NEGATIVE); LEUKOCYTE ESTERASE,URINE NEGATIVE (NEGATIVE); NITRITE,URINE NEGATIVE (NEGATIVE); PROTEIN,URINE NEGATIVE (NEGATIVE); URINE SPECIFIC GRAVITY > 1.060; UROBILINOGEN,URINE NEGATIVE mg/dL (<2.0)
[2018-12-01] MEDS ORDERED: MAGNESIUM HYDROXIDE SUSP 30 ML UDCUP PO PRN (07:30)
[2018-12-01] MEDS ORDERED: ONDANSETRON HCL INJ/PF 4 MG/2 ML SDV IV PRN ×2 (07:30→14:00)
[2018-12-01] MEDS ORDERED: MAG HYDROX/AL HYDROX/SIMETH SUSP 30 ML UDCUP PO PRN (07:30)
--- NOTE | 2018-12-01 07:30 | PDOC H&P ---
History of Present Illness Admission Date/PCP: 12/01/18 06:11 SNEHA RONQUILLO MD Patient complains of: Right facial pain History of Present Illness: SANDRINE TURNER is a 48 year old female who presented to the emergency room with a 2-day history of worsening right facial pain. Patient states that over the last 2 days she has noted gradual worsening of right facial pain with associated local tenderness, redness and swelling. Her facial pain is also accompanied by a headache and some mild intermittent blurring of her vision as well as a low- grade elevated temperature of 99.5 F. She was recently treated for a right otitis externa with cellulitis here at [facility] as an inpatient being treated with Rocephin. Patient was discharged 4 days ago on oral doxycycline and prednisone and since that time her progression of improvement stopped and she has gradually worsened back to a state where she feels that she is worse than she was when she was first admitted. The pain has changed somewhat in location being more in the right cheek malar and forehead area versus the right елена-otic region. In the emergency room patient was found to have an elevated white blood count with an elevated CRP. She was subsequently admitted to the hospital for further evaluation treatment. Past Medical History Cardiac Medical History: Denies: Coronary Artery Disease, Hypertension Pulmonary Medical History: Denies: Asthma, Chronic Obstructive Pulmonary Disease (COPD) EENT Medical History: Denies: Cataracts, Nose - Allergic rhinitis Neurological Medical History: Reports: Other - Myasthenia gravis Denies: Hemorrhagic CVA, Ischemic CVA, Multiple Sclerosis, Seizures Endocrine Medical History: Reports: Obesity Denies: Diabetes Mellitus Type 1, Diabetes Mellitus Type 2, Hyperthyroidism, Hypothyroidism Renal/ Medical History: Denies: Chronic Kidney Disease, Nephrolithiasis Malignancy Medical History: Reports: None GI Medical History: Denies: Cirrhosis, Crohn's Disease, Hepatitis, Ulcerative Colitis Musculoskeltal Medical History: Reports: Fibromyalgia Denies: Arthritis, Gout Skin Medical History: Denies: Eczema, Psoriasis Psychiatric Medical History: Reports: Attention Deficit Hyperactivity Disorder, Depression Denies: Alcohol Dependency, Substance Abuse, Tobacco Dependency Traumatic Medical History: Reports: None Hematology: Denies: Anemia, Bleeding Tendencies Infectious Medical History: Reports: None Past Surgical History Past Surgical History: Reports: Hysterectomy Social History Information Source: Patient Lives with: Family Smoking Status: Never Smoker Frequency of Alcohol Use: None Hx Recreational Drug Use: No Drugs: None Hx Prescription Drug Abuse: No - Advance Directive Resuscitation Status: Full Code Surrogate healthcare decision maker:: Frantz Turner Family History Family History: CAD, DM, Hypertension Parental Family History Reviewed: Yes Children Family History Reviewed: No Sibling(s) Family History Reviewed.: Yes Medication/Allergy Allergies/Adverse Reactions: erythromycin base [Erythromycin Base] Allergy (Verified 11/30/18 23:10) Penicillins Allergy (Verified 11/30/18 23:10) Review of Systems Constitutional: PRESENT: as per HPI, fever(s) - 99.5 F. ABSENT: chills Eyes: PRESENT: as per HPI, visual disturbances - Intermittent blurry vision. ABSENT: other - Eye pain Ears: PRESENT: other - Sensation of fluid running in her right ear. ABSENT: hearing changes Nose, Mouth, and Throat: PRESENT: headache(s). ABSENT: mouth pain, sore throat Cardiovascular: ABSENT: chest pain, palpitations Respiratory: ABSENT: cough, dyspnea Gastrointestinal: ABSENT: abdominal pain, constipation, diarrhea, nausea, vomiting Genitourinary: ABSENT: dysuria, hematuria Musculoskeletal: ABSENT: back pain, joint swelling, muscle weakness Integumentary: ABSENT: pruritus, rash Neurological: ABSENT: confusion, convulsions, focal weakness, memory loss, syncope Psychiatric: ABSENT: anxiety, depression Endocrine: ABSENT: cold intolerance, heat intolerance Hematologic/Lymphatic: ABSENT: easy bleeding, easy bruising Physical Exam Vital Signs: Temp Pulse Resp BP Pulse Ox 98.6 F 77 18 143/88 H 96 12/01/18 06:42 12/01/18 06:42 12/01/18 06:42 12/01/18 06:42 12/01/18 06:42 Intake & Output 11/29/18 11/30/18 12/01/18 23:59 23:59 23:59 Intake Total 50 Balance 50 Weight 112.2 kg General appearance: PRESENT: no acute distress, cooperative, morbidly obese Head exam: PRESENT: atraumatic, normocephalic Eye exam: PRESENT: conjunctiva pink. ABSENT: conjunctival injection, scleral icterus Ear exam: PRESENT: normal external ear exam. ABSENT: bleeding, drainage Mouth exam: PRESENT: dry mucosa, neck supple Neck exam: ABSENT: JVD, thyromegaly, tracheal deviation Respiratory exam: PRESENT: clear to auscultation nelda, symmetrical, unlabored Cardiovascular exam: PRESENT: RRR. ABSENT: clicks, gallop, rubs Pulses: PRESENT: normal radial pulses, normal dorsalis pedis pul Vascular exam: PRESENT: normal capillary refill. ABSENT: pallor GI/Abdominal exam: PRESENT: normal bowel sounds, soft. ABSENT: tenderness Rectal exam: PRESENT: deferred Extremities exam: ABSENT: joint swelling, pedal edema Musculoskeletal exam: PRESENT: full ROM, normal inspection. ABSENT: tenderness Neurological exam: PRESENT: alert, oriented to person, oriented to place, oriented to time, oriented to situation, CN II-XII grossly intact. ABSENT: motor sensory deficit Psychiatric exam: PRESENT: appropriate affect, normal mood Skin exam: PRESENT: dry, intact, rash - Erythema and edema with focal tenderness of the right face extending into the right malar and zygomatic region as well as to the angle of the jaw. Tenderness extends to the forehead though no erythema or edema is present in that area., warm. ABSENT: jaundice, urticaria Results Laboratory Results: 12/01/18 00:59 12/01/18 00:59 12/01/18 12/01/18 12/01/18 00:59 00:59 05:26 WBC 17.9 H RBC 4.69 Hgb 13.0 Hct 40.9 MCV 87 MCH 27.7 MCHC 31.8 L RDW 16.0 H Plt Count 514 H Seg Neutrophils % 81.3 H Lymphocytes % 12.3 L Monocytes % 5.9 Eosinophils % 0.0 Basophils % 0.5 Absolute Neutrophils 14.5 H Absolute Lymphocytes 2.2 Absolute Monocytes 1.1 Absolute Eosinophils 0.0 Absolute Basophils 0.1 Sodium 137.9 Potassium 4.3 Chloride 101 Carbon Dioxide 27 Anion Gap 10 BUN 19 Creatinine 0.75 Est GFR ( Amer) > 60 Est GFR (Non-Af Amer) > 60 Glucose 107 Calcium 9.7 Total Bilirubin 0.4 AST 24 Alkaline Phosphatase 137 H C-Reactive Protein 23.4 H Total Protein 8.2 Albumin 4.5 Urine Color STRAW Urine Appearance SLIGHTLY-CLOUDY Urine pH 5.0 Ur Specific [place] > 1.060 Urine Protein NEGATIVE Urine Glucose (UA) NEGATIVE Urine Ketones NEGATIVE Urine Blood SMALL H Urine Nitrite NEGATIVE Ur Leukocyte Esterase NEGATIVE Urine WBC (Auto) 2 Urine RBC (Auto) 1 Impressions: Soft Tissue Neck CT 12/01/18 00:32 IMPRESSION: 1. No significant change when compared to the prior study. There is stable partial opacification of the posterior inferior right mastoid air cells. 2. Remote postsurgical changes of the mediastinum. 3. Otherwise, unremarkable enhanced CT scan of the soft tissues of the neck. Assessment and Plan - Diagnosis (1) Facial cellulitis Is this a current diagnosis for this admission?: Yes Plan: Patient be treated with IV antibiotics Rocephin and gentamicin. Daily CBCs will be performed. Pain will be treated with Nubain 10 mg IV every 3 hours as needed. Efforts to avoid use of steroids will be made if possible. (2) Leukocytosis Qualifiers: Leukocytosis type: unspecified Qualified Code(s): D72.829 - Elevated white blood cell count, unspecified Is this a current diagnosis for this admission?: Yes Plan: A daily CBC will be performed to monitor and reassess patient's leukocytosis. (3) Myasthenia gravis Is this a current diagnosis for this admission?: Yes Plan: Patient will be continued on her usual medication regiment for myasthenia gravis. Efforts to avoid use of steroids will be made if possible. (4) Lupus Is this a current diagnosis for this admission?: Yes Plan: Patient be continued on her usual medication regiment for her systemic lupus erythematosus. Efforts to avoid use of steroids will be made if possible. - Time Time Spent with patient: 25-34 minutes Medications reviewed and adjusted accordingly: Yes Anticipated discharge: Home - Inpatient Certification Based on my medical assessment, after consideration of the patient's comorbidities, presenting symptoms, or acuity I expect that the services needed warrant INPATIENT care.: Yes I certify that my determination is in accordance with my understanding of Medicare's requirements for reasonable and necessary INPATIENT services [42 CFR 412.3e].: Yes Medical Necessity: Failure to Improve With Outpatient Therapy, Significant Comorbidiites Make Outpatient Treatment Too Risky, Need Close Monitoring Due to Risk of Patient Decompensation, Need for Pain Control, Need for IV Antibiotics, Risk of Complication if Not Cared For in Hospital
[2018-12-01] MEDS ORDERED: NALBUPHINE HCL INJ 10 MG/1 ML AMPULE IV PRN (07:36)
[2018-12-01] MEDS ORDERED: IBUPROFEN 800 MG TABLET PO PRN (07:36)
[2018-12-01] MEDS ORDERED: ACETAMINOPHEN 325 MG TABLET PO PRN (07:36)
[2018-12-01] MEDS: DOCUSATE SODIUM 100 MG CAPSULE PO SCH ×2 (10:38→18:11)
[2018-12-01] MEDS: FAMOTIDINE 20 MG TABLET PO SCH ×2 (10:38→22:00)
[2018-12-01] MEDS: HEPARIN SOD (PORCINE) 5,000 UNIT/ML 1 ML VIAL SUBCUT SCH ×2 (14:54→22:03)
--- NOTE | 2018-12-01 16:19 | CONSULTATION REPORT E ---
Consultation Report NAME: SADNRINE LEAHY : 1970 AGE: 48Y DATE: 12/01/2018 537 A TO: KM ARMIJO MD FROM: SAUMYA PARNELL M.D. Requesting Physician HISTORY: A 48-year-old female with a history of myasthenia gravis and systemic lupus erythematosus, which are both autoimmune diseases. She is currently admitted and on the inpatient christopher. The patient initially presented to the emergency room last week, on November 25, and was admitted to the hospital with right otalgia and swelling. She was started on IV antibiotics which included Rocephin, and she states her pain had resolved. She did have a CT scan which identified fluid within the mastoid, but no evidence of coalescent mastoiditis. She was discharged since her symptoms resolved, and sent home on Ciprodex and doxycycline. She states in less than 24 hours, her symptoms returned. She presented back to the emergency room complaining of similar symptoms, being the right otalgia and right facial swelling. The patient states that she was given a dose of Rocephin and the swelling decreased again. Right now, she is complaining of some right otalgia, mainly in the preauricular area. She does have a history of temporomandibular joint dysfunction and does notice popping and clicking sounds in the joint, and she also admits to trismus because of the pain in that area. PHYSICAL EXAMINATION: HEENT: Face: No evidence of facial swelling. There is tenderness in the right preauricular area in the area of the temporomandibular joint. There is popping and clicking sound upon opening up of the right temporomandibular joint. EARS: Right ear: Tympanic membrane and external auditory canal are normal. No evidence of infection. Left ear: Tympanic membrane and external auditory canal normal. ASSESSMENT: 1. RIGHT TEMPOROMANDIBULAR JOINT DYSFUNCTION. 2. MYASTHENIA GRAVIS 3. SYSTEMIC LUPUS ERYTHEMATOSUS. 4. EUSTACHIAN TUBE DYSFUNCTION ON THE RIGHT. PLAN: 1. The diagnosis and treatment plan were discussed with the patient, her , and the nursing staff. 2. Recommend continue with intravenous antibiotics for another 40-72 hours. 3. When the patient is discharged, recommend the patient be discharged on an oral antibiotic that will cover pseudomonas and staphylococcus aureus. 4. Recommend the patient be evaluated by Oromaxillofacial Surgery with regards to her temporomandibular joint dysfunction. 5. Discussed with the patient and her family that since the patient has two systemic autoimmune diseases, they may be responsible for the head and neck symptoms. 6. The patient is going to follow up with ENT in 3-4 weeks. DICTATING PHYSICIAN: KM ARMIJO M.D. [id number] PHY#: [id number] ID: [id number] JOB#: [id number] ACCT: [id number] cc:KM ARMIJO MD >
[2018-12-01] MEDS: LEVOFLOXACIN 750 MG TABLET PO SCH (22:00)
[2018-12-01] MEDS ORDERED: BUTALB/ACETAMINOPHEN/CAFFEINE 1 TAB EACH PO PRN (22:29)
[2018-12-01] MEDS ORDERED: MELATONIN 5 MG TABLET PO ONE (22:30)
[2018-12-01] MEDS ORDERED: GABAPENTIN 300 MG CAPSULE PO ONE (22:45)
[2018-12-02 06:23] LABS: HEMATOCRIT 36.7 % (36.0-47.0); HEMOGLOBIN 11.7 g/dL (12.0-15.5); MEAN CORPUSCULAR HEMOGLOBIN 27.6 pg (27.0-33.4); MEAN CORPUSCULAR VOLUME 86 fl (80-97); PLATELET COUNT 426 10^3/uL (150-450); RED BLOOD COUNT 4.24 10^6/uL (3.72-5.28); RED CELL DISTRIBUTION WIDTH 15.7 % (11.5-14.0); WHITE BLOOD COUNT 12.1 10^3/uL (4.0-10.5)
[2018-12-02] MEDS: CEFTRIAXONE SODIUM 2,000 MG in DEXTROSE 5%-WATER 100 ML IV SCH (06:46)
[2018-12-02] MEDS: GABAPENTIN 300 MG CAPSULE PO SCH ×3 (06:53→22:30)
[2018-12-02] MEDS: HEPARIN SOD (PORCINE) 5,000 UNIT/ML 1 ML VIAL SUBCUT SCH ×3 (07:02→22:32)
[2018-12-02 09:11] LABS: ALBUMIN 3.8 g/dL (3.5-5.0); ALKALINE PHOSPHATASE 109 U/L (38-126); ANION GAP 6 (5-19); ASPARTATE AMINO TRANSFERASE 20 U/L (14-36); BILIRUBIN,DIRECT 0.3 mg/dL (0.0-0.4); BILIRUBIN,TOTAL 0.3 mg/dL (0.2-1.3); BLOOD UREA NITROGEN 23 mg/dL (7-20); CALCIUM 9.6 mg/dL (8.4-10.2); CARBON DIOXIDE 29 mmol/L (22-30); CHLORIDE 101 mmol/L (98-107); GLUCOSE 110 mg/dL (75-110); TOTAL PROTEIN 6.7 g/dL (6.3-8.2)
[2018-12-02] MEDS ORDERED: CEFTRIAXONE 2 GM/D5W RTU 2 GM/50 ML RTUPB IV SCH (10:00)
[2018-12-02] MEDS: FAMOTIDINE 20 MG TABLET PO SCH ×2 (10:09→22:32)
[2018-12-02] MEDS: DOCUSATE SODIUM 100 MG CAPSULE PO SCH ×2 (10:09→17:02)
[2018-12-02] MEDS ORDERED: LORAZEPAM 1 MG TABLET PO PRN (10:40)
[2018-12-02] MEDS ORDERED: (PENDING PHARMACY ID) (Butalb/Acetaminophen/Caffeine [Fioricet 50-300-40 Mg Capsule] 1 CAP PO PRN (10:40)
--- NOTE | 2018-12-02 10:46 | PDOC PROGRESS REPORT ---
Subjective Progress Note for:: 12/02/18 Subjective:: 48 year old female who presented to the emergency room with a 2-day history of worsening right facial pain. Patient states that over the last 2 days she has noted gradual worsening of right facial pain with associated local tenderness, redness and swelling. Her facial pain is also accompanied by a headache and some mild intermittent blurring of her vision as well as a low-grade elevated temperature of 99.5 F. She was recently treated for a right otitis externa with cellulitis here at [facility] as an inpatient being treated with Rocephin. Patient was discharged 4 days ago on oral doxycycline and prednisone and since that time her progression of improvement stopped and she has gradually worsened back to a state where she feels that she is worse than she was when she was first admitted. The pain has changed somewhat in location being more in the right cheek malar and forehead area versus the right елена-otic region. In the emergency room patient was found to have an elevated white blood count with an elevated CRP. She was subsequently admitted to the hospital for further evaluation treatment. 12/02/[id number]-nwtw-old female admitted with 2 days history of worsening right facial pain she was here prior to the admission for few days for right-sided otitis externa treatment she went home on doxycycline and she came back with similar problem ENT consult was done patient was started on IV Rocephin 2 g daily patient says she is feeling much better. She is requesting her mycophenolate medications. Patient's WBC count came down to 11,100 and the cultures are negative so far. No acute events since last night. Afebrile. Reason For Visit: ACUTE RIGHT FACIAL CELLULITITS (RECURRENT) Physical Exam Vital Signs: Temp Pulse Resp BP Pulse Ox 97.9 F 76 16 124/67 94 12/02/18 10:00 12/02/18 10:00 12/02/18 10:00 12/02/18 10:00 12/02/18 10:00 Intake & Output 12/01/18 12/02/18 12/03/18 06:59 06:59 06:59 Intake Total 50 1520 100 Balance 50 1520 100 Weight 112.3 kg 114.7 kg General appearance: PRESENT: no acute distress Head exam: PRESENT: atraumatic Eye exam: PRESENT: PERRLA Mouth exam: PRESENT: dry mucosa Teeth exam: PRESENT: poor dentation Neck exam: ABSENT: carotid bruit, JVD, lymphadenopathy, thyromegaly Respiratory exam: PRESENT: clear to auscultation nelda. ABSENT: rales, rhonchi, wheezes Cardiovascular exam: PRESENT: RRR. ABSENT: diastolic murmur, rubs, systolic murmur GI/Abdominal exam: PRESENT: normal bowel sounds, soft. ABSENT: distended, guarding, mass, organolmegaly, rebound, tenderness Rectal exam: PRESENT: deferred Neurological exam: PRESENT: alert, awake, oriented to person, oriented to place, oriented to time, oriented to situation, CN II-XII grossly intact. ABSENT: motor sensory deficit Psychiatric exam: PRESENT: appropriate affect, normal mood. ABSENT: homicidal i deation, suicidal ideation Results Laboratory Results: 12/02/18 06:05 12/02/18 06:55 12/02/18 12/02/18 06:05 06:55 WBC 12.1 H RBC 4.24 Hgb 11.7 L Hct 36.7 MCV 86 MCH 27.6 MCHC 32.0 RDW 15.7 H Plt Count 426 Sodium 135.8 L Potassium 5.0 Chloride 101 Carbon Dioxide 29 Anion Gap 6 BUN 23 H Creatinine 0.81 Est GFR ( Amer) > 60 Est GFR (Non-Af Amer) > 60 Glucose 110 Calcium 9.6 Total Bilirubin 0.3 AST 20 Alkaline Phosphatase 109 Total Protein 6.7 Albumin 3.8 Impressions: Soft Tissue Neck CT 12/01/18 00:32 IMPRESSION: 1. No significant change when compared to the prior study. There is stable partial opacification of the posterior inferior right mastoid air cells. 2. Remote postsurgical changes of the mediastinum. 3. Otherwise, unremarkable enhanced CT scan of the soft tissues of the neck. Assessment and Plan - Diagnosis (1) Cellulitis Qualifiers: Site of cellulitis: face Qualified Code(s): L03.211 - Cellulitis of face Is this a current diagnosis for this admission?: Yes Plan: 12/02/[id number]-jqnz female admitted with right-sided facial cellulitis on IV Rocephin WBC count is coming down and it is 12,100 today patient is on prednisone at home on admission WBC count is 17,900 patient is afebrile during this hospital stay cultures are negative. ENT consultation was done. And is expressing desire to stay at least another day because she thinks she is too unsafe for her to go home today. (2) Myasthenia gravis Is this a current diagnosis for this admission?: Yes Plan: Patient will be continued on her usual medication regiment for myasthenia gravis. Efforts to avoid use of steroids will be made if possible. 12/02/2018-patient has history of myasthenia gravis to continue her home medications during the hospital stay. (3) Lupus Is this a current diagnosis for this admission?: Yes Plan: Patient be continued on her usual medication regiment for her systemic lupus er ythematosus. Efforts to avoid use of steroids will be made if possible. 12/02/2018-patient has history of lupus erythematous continue home medications during this hospital stay. (4) Morbid (severe) obesity due to excess calories Is this a current diagnosis for this admission?: No Plan: 12/02/2018-patient BMI is more than 44 diet exercise weight loss lifestyle modifications are discussed with the patient. - Time Time Spent with patient: 15-24 minutes Smoking Cessation Education: over 10 minutes Medications reviewed and adjusted accordingly: Yes Anticipated discharge: Home
[2018-12-02] MEDS ORDERED: CYANOCOBALAMIN (VITAMIN B-12) INJ 1000 MCG/1 ML VIAL IM SCH (12:00)
[2018-12-02] MEDS: BUPROPION HCL 75 MG TABLET PO SCH ×2 (12:09→22:32)
[2018-12-02] MEDS ORDERED: GABAPENTIN 300 MG CAPSULE PO SCH (14:00)
[2018-12-02] MEDS ORDERED: MYCOPHENOLATE MOFETIL 1500 MG PO SCH (17:00)
[2018-12-02] MEDS: MYCOPHENOLATE MOFETIL 250 MG CAPSULE PO SCH (17:01)
[2018-12-02] MEDS ORDERED: AMPHETAMINE PO SCH (18:00)
[2018-12-02] MEDS ORDERED: DEXTROAMPHETAMINE PO SCH (18:00)
[2018-12-02] MEDS ORDERED: (PENDING PHARMACY ID) (Bupropion Hcl [Wellbutrin Xl 150 Mg 24hr Tablet] 150 MG) PO SCH (22:00)
[2018-12-02] MEDS ORDERED: ESCITALOPRAM OXALATE 10 MG TABLET PO SCH (22:00)
[2018-12-02] MEDS ORDERED: MELATONIN 5 MG TABLET PO SCH (22:00)
[2018-12-02] MEDS: LEVOFLOXACIN 750 MG TABLET PO SCH (22:32)
[2018-12-03] MEDS: CEFTRIAXONE SODIUM 2,000 MG in DEXTROSE 5%-WATER 100 ML IV SCH (05:40)
[2018-12-03] MEDS: GABAPENTIN 300 MG CAPSULE PO SCH (05:42)
[2018-12-03] MEDS: HEPARIN SOD (PORCINE) 5,000 UNIT/ML 1 ML VIAL SUBCUT SCH (05:42)
[2018-12-03 06:45] LABS: ABSOLUTE EOSINOPHILS # (AUTO) 0.2 10^3/uL (0.0-0.6); ABSOLUTE LYMPHOCYTES (AUTO) 2.7 10^3/uL (0.5-4.7); ABSOLUTE MONOCYTES (AUTO) 0.6 10^3/uL (0.1-1.4); BASOPHILS % (AUTO) 0.3 % (0-2); EOSINOPHILS % (AUTO) 1.9 % (0-6); HEMOGLOBIN 11.1 g/dL (12.0-15.5); MEAN CORPUSCULAR HEMOGLOBIN 27.5 pg (27.0-33.4); MEAN CORPUSCULAR HGB CONC 31.7 g/dL (32.0-36.0); MEAN CORPUSCULAR VOLUME 87 fl (80-97); MONOCYTES % (AUTO) 7.3 % (3-13); PLATELET COUNT 398 10^3/uL (150-450); RED BLOOD COUNT 4.03 10^6/uL (3.72-5.28); RED CELL DISTRIBUTION WIDTH 15.7 % (11.5-14.0); SEGMENTED NEUTROPHILS % (AUTO) 58.5 % (42-78); TOTAL CELLS COUNTED % (AUTO) 100 %; WHITE BLOOD COUNT 8.5 10^3/uL (4.0-10.5)
[2018-12-03 07:00] LABS: ALBUMIN 3.6 g/dL (3.5-5.0); ALKALINE PHOSPHATASE 105 U/L (38-126); ANION GAP 6 (5-19); ASPARTATE AMINO TRANSFERASE 16 U/L (14-36); BILIRUBIN,DIRECT 0.3 mg/dL (0.0-0.4); BILIRUBIN,TOTAL 0.3 mg/dL (0.2-1.3); BLOOD UREA NITROGEN 19 mg/dL (7-20); CALCIUM 9.1 mg/dL (8.4-10.2); CARBON DIOXIDE 30 mmol/L (22-30); CHLORIDE 102 mmol/L (98-107); GLUCOSE 123 mg/dL (75-110); POTASSIUM 4.8 mmol/L (3.6-5.0); TOTAL PROTEIN 6.4 g/dL (6.3-8.2)
[2018-12-03] MEDS: MYCOPHENOLATE MOFETIL 250 MG CAPSULE PO SCH (08:17)
[2018-12-03] MEDS: FAMOTIDINE 20 MG TABLET PO SCH (09:58)
[2018-12-03] MEDS: DOCUSATE SODIUM 100 MG CAPSULE PO SCH (09:58)
[2018-12-03] MEDS: BUPROPION HCL 75 MG TABLET PO SCH (09:58)
[2018-12-03] MEDS ORDERED: FLUTICASONE NASAL SPRAY 50 MCG/SPRY 120 SPRAY/16 GM NASL SCH (10:00)
--- NOTE | 2018-12-03 11:18 | PDOC DISCHARGE SUMMARY ---
General - Admit/Disc Date/PCP Admission Date/Primary Care Provider: 12/01/18 06:11 SNEHA RONQUILLO MD Discharge Date: 12/03/18 - Discharge Diagnosis (1) Cellulitis Is this a current diagnosis for this admission?: Yes Summary: Patient be treated with IV antibiotics Rocephin and gentamicin. Daily CBCs will be performed. Pain will be treated with Nubain 10 mg IV every 3 hours as needed. Efforts to avoid use of steroids will be made if possible. 12/03/2018-patient admitted with facial cellulitis treated with IV Rocephin cultures are negative afebrile patient is going home on Bactrim DS 1 tablet p.o. twice daily for 7 days strongly advised to follow-up with ENT. (2) Myasthenia gravis Is this a current diagnosis for this admission?: Yes (3) Lupus Is this a current diagnosis for this admission?: No Summary: 12/03/2018-patient has history of lupus no flareups noticed during this hospital stay. (4) Morbid (severe) obesity due to excess calories Is this a current diagnosis for this admission?: No (5) Leukocytosis Is this a current diagnosis for this admission?: Yes Summary: 12/03/2018-patient came in with elevated WBC count may be secondary to prednisone she is using at home. Today's WBC count is 8.5. Leukocytosis is resolved. (6) Myasthenia gravis Is this a current diagnosis for this admission?: No Summary: 12/03/2018-patient has history of myasthenia gravis and no flareup was noticed during this hospital stay. - Additional Information Resuscitation Status: Full Code Discharge Diet: Cardiac Discharge Activity: Activity As Tolerated Prescriptions: Sulfamethoxazole/Trimethoprim [Bactrim Ds Tablet] 1 each PO BID #14 tablet Home Medications: Acetaminophen [Tylenol 325 mg Tablet] 650 mg PO Q4HP PRN 12/01/18 Bupropion HCl [Wellbutrin Xl 150 mg 24hr Tablet] 150 mg PO QHS 12/01/18 Butalb/Acetaminophen/Caffeine [Fioricet 50-300-40 mg Capsule] 1 cap PO Q4HP PRN 12/01/18 Cyanocobalamin (Vitamin B-12) [Vitamin B-12 Inj 1000 Mcg/1 ml Vial] 1,000 mcg IM .MONTHLY 12/01/18 Dextroamphetamine/Amphetamine [Adderall Xr 30 mg Capsule] 30 mg PO BID 12/01/18 Ergocalciferol (Vitamin D2) [Drisdol 50,000 unit (1.25MG) Capsule] 50,000 unit PO MOWE@1000 12/01/18 Escitalopram Oxalate [Lexapro 10 mg Tablet] 30 mg PO QHS 12/01/18 Estradiol [Estrace] 1 mg PO TUTH@1000 12/01/18 Fluticasone Propionate [Flonase Nasal [place] 50 Mcg/[place] 16 gm] 2 sprays NASL DAILY 12/01/18 Gabapentin [Neurontin] 600 mg PO Q8 12/01/18 Lisinopril/Hydrochlorothiazide [Lisinopril-Hctz 10-12.5 mg Tab] 1 each PO DAILY 12/01/18 Lorazepam [Ativan 1 mg Tablet] 1 mg PO Q12HP PRN 12/01/18 Melatonin 10 mg PO QHS 12/01/18 Mycophenolate Mofetil 1,500 mg PO BIDBS 12/01/18 Tramadol HCl [Ultram 50 mg Tablet] 50 mg PO Q8HP PRN 12/01/18 Sulfamethoxazole/Trimethoprim [Bactrim Ds Tablet] 1 each PO BID #14 tablet 12/03/18 History of Present Illness History of Present Illness: SANDRINE LEAHY is a 48 year old female 48 year old female who presented to the emergency room with a 2-day history of worsening right facial pain. Patient states that over the last 2 days she has noted gradual worsening of right facial pain with associated local tenderness, redness and swelling. Her facial pain is also accompanied by a headache and some mild intermittent blurring of her vision as well as a low-grade elevated temperature of 99.5 F. She was recently treated for a right otitis externa with cellulitis here at [facility] as an inpatient being treated with Rocephin. Patient was discharged 4 days ago on oral doxycycline and prednisone and since that time her progression of improvement stopped and she johnson s gradually worsened back to a state where she feels that she is worse than she was when she was first admitted. The pain has changed somewhat in location being more in the right cheek malar and forehead area versus the right елена-otic region. In the emergency room patient was found to have an elevated white blood count with an elevated CRP. She was subsequently admitted to the hospital for further evaluation treatment. 12/03/[id number]-ldwu-old female admitted with facial cellulitis and that she was recently treated for right otitis externa ENT evaluation was done no new recommendations were made. Patient is doing well. Expressing desire to go home. I am going to discharge the patient on Bactrim I discussed the medication with the pharmacy there is no interaction or side effects with Bactrim in patients with myasthenia. Hospital Course Hospital Course: 12/03/[id number]-wgev-old female admitted with facial cellulitis rather cultures are negative afebrile treated with IV Rocephin she is going home today. Physical Exam Vital Signs: Temp Pulse Resp BP Pulse Ox 98.2 F 73 18 118/64 96 12/03/18 07:58 12/03/18 07:58 12/03/18 07:58 12/03/18 07:58 12/03/18 07:58 Intake & Output 12/02/18 12/03/18 12/04/18 06:59 06:59 06:59 Intake Total 1520 3565 Balance 1520 3565 Weight 114.7 kg 117.4 kg General appearance: PRESENT: no acute distress, cooperative, morbidly obese Head exam: PRESENT: atraumatic Eye exam: PRESENT: PERRLA Mouth exam: PRESENT: neck supple Teeth exam: PRESENT: poor dentation Neck exam: ABSENT: carotid bruit, JVD, lymphadenopathy, thyromegaly Respiratory exam: PRESENT: clear to auscultation nelda. ABSENT: rales, rhonchi, wheezes Cardiovascular exam: PRESENT: RRR. ABSENT: diastolic murmur, rubs, systolic murmur GI/Abdominal exam: PRESENT: normal bowel sounds, soft. ABSENT: distended, guarding, mass, organolmegaly, rebound, tenderness Rectal exam: PRESENT: deferred Extremities exam: PRESENT: full ROM. ABSENT: calf tenderness, clubbing, pedal edema Neurological exam: PRESENT: alert, awake, oriented to person, oriented to place, oriented to time, oriented to situation, CN II-XII grossly intact. ABSENT: motor sensory deficit Psychiatric exam: PRESENT: appropriate affect, normal mood. ABSENT: homicidal ideation, suicidal ideation Results Laboratory Results: 12/03/18 06:05 12/03/18 06:05 12/03/18 12/03/18 06:05 06:05 WBC 8.5 RBC 4.03 Hgb 11.1 L Hct 35.0 L MCV 87 MCH 27.5 MCHC 31.7 L RDW 15.7 H Plt Count 398 Seg Neutrophils % 58.5 Lymphocytes % 32.0 Monocytes % 7.3 Eosinophils % 1.9 Basophils % 0.3 Absolute Neutrophils 5.0 Absolute Lymphocytes 2.7 Absolute Monocytes 0.6 Absolute Eosinophils 0.2 Absolute Basophils 0.0 Sodium 138.2 Potassium 4.8 Chloride 102 Carbon Dioxide 30 Anion Gap 6 BUN 19 Creatinine 0.71 Est GFR ( Amer) > 60 Est GFR (Non-Af Amer) > 60 Glucose 123 H Calcium 9.1 Magnesium 2.2 Total Bilirubin 0.3 AST 16 Alkaline Phosphatase 105 Total Protein 6.4 Albumin 3.6 Impressions: Soft Tissue Neck CT 12/01/18 00:32 IMPRESSION: 1. No significant change when compared to the prior study. There is stable partial opacification of the posterior inferior right mastoid air cells. 2. Remote postsurgical changes of the mediastinum. 3. Otherwise, unremarkable enhanced CT scan of the soft tissues of the neck. Qualifiers - * PATIENT BEING DISCHARGED WITH ANY OF THE FOLLOWING DIAGNOSIS: No Acute Heart Failure - Is this a Heart Failure Patient?: No Plan Discharge Plan: Patient is going home today. Time Spent: Greater than 30 Minutes
[2018-12-03 11:24] VITALS: BP 118/70
[2018-12-06] MEDS ORDERED: ERGOCALCIFEROL (VITAMIN D2) 50000 UNIT (1.25 MG) CAPSULE PO SCH (10:00)
[2018-12-07] MEDS ORDERED: (PENDING PHARMACY ID) (Estradiol [Estrace] 1 MG) PO SCH (10:00)
== END 2018-12-03 12:39 | disposition hospice, home (50) | DRG 603 ==
LOC: ER 23:04 → EH 12-01 06:11 → 5 12-01 07:08
PROVIDERS: ADMIT Emergency Medicine; ATTEND Emergency Medicine
DX: L03.211 Cellulitis of face (principal); G70.00 Myasthenia gravis without (acute) exacerbation; M32.9 Systemic lupus erythematosus, unspecified; E66.01 Morbid (severe) obesity due to excess calories; D72.829 Elevated white blood cell count, unspecified; M27.8 Other specified diseases of jaws; T38.0X5A Adverse effect of glucocorticoids and synthetic analogues, initial encounter; Y92.9 Unspecified place or not applicable; M79.7 Fibromyalgia; F90.9 Attention-deficit hyperactivity disorder, unspecified type; Z79.899 Other long term (current) drug therapy; Z88.2 Allergy status to sulfonamides; Z88.3 Allergy status to other anti-infective agents; Z88.0 Allergy status to penicillin; Z82.49 Family history of ischemic heart disease and other diseases of the circulatory system
CPT/HCPCS: 36415; 70491; 80053; 81001; 83735; 85025; 85027; 85652; 86140; 87040; 96365; 96375; 99285; J0696; J1644; J2405; J3010; J3420; J3490; J7060; J7517

== ENCOUNTER → 2020-04-12 | Outpatient (CLI) | payer MEDICARE, OTHER ==
--- NOTE | 2020-04-12 14:51 | WOMENS IMAGING REPORT ---
EXAM DESCRIPTION: BILAT SCREENING MAMMO W/CAD IMAGES COMPLETED DATE/TIME: 04/12/2020 2:19 pm REASON FOR STUDY: Z12.31 ENCNTR SCREEN MAMMOGRAM FOR MALIGNANT NEOPLASM OF BREAST Z12.31 ENCNTR SCR EEN MAMMOGRAM FOR MALIGNANT NEOPLASM OF PARISA M81.0 AGE-RELATED OSTEOPOROSIS W/O CURRENT PATHOLOGICAL FRAC COMPARISON: Priors dating back to 2011 EXAM PARAMETERS: Standard craniocaudal and mediolateral oblique views of each breast recorded using digital acquisition. Read with the assistance of CAD. .COUNTS INCLUDE 234 BEDS AT THE [facility] - [employer] Version 9.2 LIMITATIONS: None. FINDINGS: No suspicious masses, suspicious calcifications or architectural distortion. No areas of c oncern. IMPRESSION: NEGATIVE MAMMOGRAM. BIRADS 1 BREAST DENSITY: b. There are scattered areas of fibroglandular density. BIRAD: ASSESSMENT: 1 NEGATIVE RECOMMENDATION: ROUTINE SCREENING COMMENT: The patient has been notified of the results by letter per MQSA requirements. Additional no tification policies are in place for contacting patient with suspicious or incomplete findings. Quality ID #[id number]: The [employer] recommends an annual screening mammogram for women aged 40 years or over. This facility utilizes a reminder system to ensure that all patients receive reminder letters, and/or direct phone calls for appointments. This includes reminders for routine scr eening mammograms, diagnostic mammograms, or other Breast Imaging Interventions when appropriate. Th is patient will be placed in the appropriate reminder system. TECHNICAL DOCUMENTATION: FINDING NUMBER: (1) ASSESSMENT: (1) JOB ID: [id number] 2010 [employer]- All Rights Reserved Reading location - IP/workstation name: [email or web address]
--- NOTE | 2020-04-12 15:16 | WOMENS IMAGING REPORT ---
EXAM DESCRIPTION: BONE DENSITY HIP/SPINE IMAGES COMPLETED DATE/TIME: 04/12/2020 2:19 pm REASON FOR STUDY: M81.0 AGE-RELATED OSTEOPOROSIS W/O CURRENT PATHOLOGICAL FRACTURE Z12.31 ENCNTR SC REEN MAMMOGRAM FOR MALIGNANT NEOPLASM OF PARISA M81.0 AGE-RELATED OSTEOPOROSIS W/O CURRENT PATHOLOGICAL FRAC COMPARISON: 02/29/2016 10/21/2007 TECHNIQUE: Dual-Energy X-ray Absorptiometry (DEXA) of the AP Spine and Hip. LIMITATIONS: None. FINDINGS: LUMBAR SPINE: The bone mineral density (BMD) measured from L1-L4 in the AP projection correlates with a T-score of -0.7, which is normal as defined by the World Health Organization. BMD Change vs Baseline: -5.3% HIP: The bone mineral density (BMD) measured in the left hip correlates with a T-score of -2.0 in the femo ral neck, which is osteopenia as defined by the World Health Organization. BMD Change vs Baseline: -5.7% 10 year Fracture Risk Assessment: Major Osteoporotic Fracture: 6.6% Hip Fracture: 0.9% IMPRESSION: 1. LUMBAR SPINE WHO CLASSIFICATION: NORMAL. 2. HIP WHO CLASSIFICATION: OSTEOPENIA. OVERALL ASSESSMENT: WHO CLASSIFICATION: OSTEOPENIA. COMMENT: The World Health Organization defines low BMD as follows: T-score: Normal: At or above -1.0 Osteopenia: Between -1.0 and -2.5 Osteoporosis: At or below -2.5 without fractures Established osteoporosis: At or below -2.5 with fractures In general, you may wish to consider: Diagnosis Treatment Follow-up DEXA Normal BMD Prevention 2-3 years Osteopenia Prevention/Therapy 1-2 years Osteoporosis Therapy Yearly TECHNICAL DOCUMENTATION: JOB ID: [id number] 2010 [employer]- All Rights Reserved Reading location - IP/workstation name: [email or web address]
== END ==
LOC: WI 13:48
PROVIDERS: ATTEND Family Medicine
DX: Z12.31 Encounter for screening mammogram for malignant neoplasm of breast (principal); M81.0 Age-related osteoporosis without current pathological fracture
CPT/HCPCS: 77067; 77080